=== PATIENT | male | born 1985 | race African-American/Black ===

== ENCOUNTER 2021-02-08 16:51 | Emergency (ER) | payer SELFPAY ==
[~2021-02-08 16:51] MED LIST: Iopamidol-370 76% 500 ML 1 ML ONE
[2021-02-08 18:20] LABS: #Basophils 0.1 thou/uL (0.0-0.2); #Eosinphils 0.4 thou/uL (0.0-0.7); #Lymphocytes 2.2 thou/uL (1.20-3.40); #Monocytes 0.7 thou/uL (0.11-0.59); #Neutrophils 5.8 thou/uL (1.40-6.50); %Basophils 0.6 % (0.0-1.0); %Eosinophils 4.9 % (0.0-10.0); %Lymphocytes 24.2 % (21.0-51.0); %Monocytes 7.7 % (0.0-10.0); %Neutrophils 62.7 % (42.0-75.0); Hemoglobin 16.2 g/dL (14.0-18.0); Mean Corpuscular HGB CONC 33.3 g/dL (32.0-36.0); Mean Corpuscular Volume 90.3 fL (78.0-98.0); Mean Platelet Volume 6.6 fL (7.4-10.4); Platelet Count 248 thou/uL (130-400); RBC Distribution Width 11.6 % (11.5-14.5); Red Blood Cell (RBC) Count 5.38 mill/uL (4.70-6.10); White Blood Cell (WBC) Count 9.2 thou/uL (4.8-10.8)
[2021-02-08] MEDS ORDERED: Naproxen 500 MG TAB ONE (21:01)
== END 2021-02-08 21:05 | disposition home or self-care (01) ==
LOC: ERS 16:51
DX: K11.8 Other diseases of salivary glands (principal); F17.210 Nicotine dependence, cigarettes, uncomplicated
CPT/HCPCS: 36415; 70487; 85025; Q9967

== ENCOUNTER 2021-05-15 12:56 | Outpatient (CLI) | payer OTHER ==
[2021-05-16 12:37] LABS: SARS-CoV-2 PCR by NAA Not Detected (NotDetected)
== END 2021-05-15 12:57 | disposition home or self-care (01) ==
LOC: LABBT 12:56
PROVIDERS: ATTEND Otolaryngology Plastic Surgery within the Head & Neck
DX: Z01.812 Encounter for preprocedural laboratory examination (principal); K11.8 Other diseases of salivary glands; Z20.822 Contact with and (suspected) exposure to COVID-19
CPT/HCPCS: U0003; U0005

== ENCOUNTER 2021-05-22 17:31 | Outpatient (CLI) | payer OTHER ==
[2021-05-23 09:04] LABS: SARS-CoV-2 PCR by NAA Not Detected (NotDetected)
== END 2021-05-22 17:32 | disposition home or self-care (01) ==
LOC: LABBT 17:31
PROVIDERS: ATTEND Otolaryngology Plastic Surgery within the Head & Neck
DX: Z01.812 Encounter for preprocedural laboratory examination (principal); K11.8 Other diseases of salivary glands; Z20.822 Contact with and (suspected) exposure to COVID-19
CPT/HCPCS: U0003; U0005

== ENCOUNTER 2021-05-30 17:35 | Outpatient (CLI) | payer OTHER ==
[2021-05-30 19:17] LABS: SARS-CoV-2 NAA Rapid Test Not Detected (NotDetected)
== END 2021-05-30 17:36 | disposition home or self-care (01) ==
LOC: LABBT 17:35
PROVIDERS: ATTEND Otolaryngology Plastic Surgery within the Head & Neck
DX: Z01.812 Encounter for preprocedural laboratory examination (principal); K11.8 Other diseases of salivary glands; Z20.822 Contact with and (suspected) exposure to COVID-19
CPT/HCPCS: U0002

== ENCOUNTER 2021-06-01 10:00 | Day surgery (SDC) | payer OTHER ==
[2021-05-16 10:42] VITALS: BMI 26.6
[2021-06-01] MEDS ORDERED: Fentanyl 250 MCG/5 ML VIAL ONE (11:27)
[2021-06-01] MEDS ORDERED: Lidocaine 1% w/Epinephrine 1:100K 20 ML VIAL ONE (12:10)
[2021-06-01] MEDS ORDERED: Midazolam HCl 2 mg/2 ml Vial ONE (12:24)
[2021-06-01] MEDS ORDERED: Ondansetron PF 4 MG/2 ML Vial ONE (12:33)
[2021-06-01] MEDS ORDERED: PROPOFOL 200 MG/20 ML VIAL ONE (12:33)
[2021-06-01] MEDS ORDERED: Dexamethasone 20 MG/5 ML VIAL ONE (12:33)
[2021-06-01] MEDS ORDERED: Lidocaine 1% PF 5 ML VIAL ONE (12:33)
[2021-06-01] MEDS ORDERED: Succinylcholine 200 MG/10 ml SYRINGE FS ONE (12:33)
[2021-06-01] MEDS ORDERED: ePHEDrine 50 MG/ML VIAL ONE (12:33)
[2021-06-01] MEDS ORDERED: Bacitracin Zinc Ointment 30 gm TUBE ONE (13:11)
[2021-06-01] MEDS ORDERED: HYDROcodone/Acetaminophen 5/325 mg Tablet ONE (16:50)
== END 2021-06-01 18:40 | disposition home or self-care (01) ==
LOC: SDC 10:00
PROVIDERS: ATTEND Specialist
PROC: 0CT80ZZ Resection of Right Parotid Gland, Open Approach (ICD-10-PCS; principal; 2021-06-01)
DX: D11.0 Benign neoplasm of parotid gland (principal); Z91.018 Allergy to other foods; Z98.890 Other specified postprocedural states
CPT/HCPCS: 88307; J1100; J2250; J2405; J2704; J3010; J3490

== ENCOUNTER 2022-02-09 20:40 | Emergency (ER) | payer OTHER, SELFPAY ==
[2022-02-09] MEDS ORDERED: Ketorolac Tromethamine 30 MG/ML VIAL ONE (21:44)
[2022-02-09] MEDS ORDERED: Acetaminophen 500 MG TAB ONE (21:44)
== END 2022-02-09 22:53 | disposition home or self-care (01) ==
LOC: ERS 20:40
DX: S20.212A Contusion of left front wall of thorax, initial encounter (principal); F17.210 Nicotine dependence, cigarettes, uncomplicated; V89.2XXA Person injured in unspecified motor-vehicle accident, traffic, initial encounter
CPT/HCPCS: 71046; 96372; J1885

== ENCOUNTER 2022-02-16 10:47 | Emergency (ER) | payer SELFPAY | END 2022-02-16 11:20 | disposition home or self-care (01) | LOC: ERS 10:47 | DX: B02.9 Zoster without complications (principal); J45.909 Unspecified asthma, uncomplicated; F17.210 Nicotine dependence, cigarettes, uncomplicated | CPT/HCPCS: 99282 ==

== ENCOUNTER 2024-08-21 18:29 | Emergency (ER) | payer SELFPAY ==
[2024-08-21] MEDS ORDERED: Acetaminophen 500 MG TAB ONE (19:27)
[2024-08-21] MEDS ORDERED: predniSONE 20 MG TAB ONE (21:19)
== END 2024-08-21 21:23 | disposition home or self-care (01) ==
LOC: ERS 18:29
DX: J11.1 Influenza due to unidentified influenza virus with other respiratory manifestations (principal); F17.210 Nicotine dependence, cigarettes, uncomplicated
CPT/HCPCS: 71045; 87428; J7512